=== PATIENT | female | born 1970 | race Caucasian/White ===

== ENCOUNTER 2016-05-18 12:11 | Emergency (ER) | payer OTHER ==
[~2016-05-18] VITALS: Ht 162.6 cm; Wt 97.7 kg
[~2016-05-18 12:11] MED LIST: ACET-1256 PO; ALBU1AER9 INH; OMEP40CA PO; SIMV10TA5 PO
[2016-05-18 12:12] VITALS: TEMP 36.7; Ht 162.6 cm; Wt 97.7 kg
[2016-05-18] MEDS ORDERED: PRLSR20 PO (12:36)
--- NOTE | 2016-05-18 13:08 | DIAGNOSTIC IMAGING REPORT ---
TWO VIEW CHEST CLINICAL HISTORY: Productive cough. Wheezing. FINDINGS: PA and lateral chest radiographs are obtained. No prior studies are available for comparison at the time of dictation. The cardiomediastinal silhouette is unremarkable. Mild patchy airspace opacities are identified at the left lung base. The lungs are otherwise clear. No pleural effusion or pneumothorax is seen. The bony thorax appears intact. IMPRESSION: Mild patchy airspace opacities are identified at the left lung base. This likely represents an infectious/inflammatory pneumonitis. Radiographic follow-up to resolution is recommended. Electronically signed by: Raad Nava M.D. 05/18/2016 1:06 PM Dictated Date/Time: 05/18/2016 1:05 PM
[2016-05-18 14:21] LABS: BASO % 0.5 %; BASO ABS # 0.03 K/uL (0-0.2); COMPLETE YES; EOS % 3.5 %; HEMATOCRIT 38.4 % (37-47); IG% 0.3 %; LYMPH % 47.1 %; LYMPH ABS # 2.96 K/uL (1.2-3.4); MEAN CELL VOLUME 82.6 fL (80-100); MEAN CORPUSCULAR HGB CONC 35.2 g/dl (32-36); MEAN PLATELET VOLUME 8.9 fL (7.4-10.4); MONO % 6.8 %; NEUT % 41.8 %; PLATELET COUNT 246 K/uL (130-400); RED BLOOD COUNT 4.65 M/uL (4.2-5.4); WHITE BLOOD COUNT 6.29 K/uL (4.8-10.8)
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
[2016-05-18 14:38] LABS: BUN/CREATININE RATIO 19.2 (10-20); CALCIUM 8.6 mg/dl (8.5-10.1); CREATININE 0.65 mg/dl (0.60-1.20); POTASSIUM 3.7 mmol/L (3.5-5.1)
[2016-05-18 14:48] LABS: ALB/GLOB RATIO 0.8 (0.9-2); THYROID STIMULATING HORMONE 2.48 uIu/ml (0.300-4.500)
[2016-05-18] MEDS ORDERED: DOXY-300 PO (15:10)
[2016-05-18] MEDS ORDERED: VNTHFA/IN INH (15:10)
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
[2016-05-18 15:45] VITALS: BP 109/72; PULSE 54; O2SAT 99
== END 2016-05-18 15:50 | disposition home or self-care (01) ==
LOC: C.EDB 12:12 → C.EDD 15:50
DX: J18.9 Pneumonia, unspecified organism (principal); M25.552 Pain in left hip; K21.9 Gastro-esophageal reflux disease without esophagitis

== ENCOUNTER 2016-07-04 12:14 | Emergency (ER) | payer OTHER ==
[~2016-07-04 12:14] MED LIST changes: -ACET-1256 PO; -ALBU1AER9 INH; +DOXY-300 PO; -OMEP40CA PO; +PRLSR20 PO; -SIMV10TA5 PO; +VNTHFA/IN INH
[2016-07-04 12:21] VITALS: TEMP 36.7
[2016-07-04] MEDS ORDERED: VNTHFA/IN INH (12:38)
[2016-07-04] MEDS ORDERED: DOXY100C2 PO (12:38)
[2016-07-04] MEDS ORDERED: ALBUT/IPRATROP 3MG/0.5MG NEB 3 ML VIAL INH ONE (12:45)
[2016-07-04] MEDS ORDERED: OMEP40CA41 PO (13:11)
--- NOTE | 2016-07-04 13:23 | DIAGNOSTIC IMAGING REPORT ---
CHEST 2 VIEWS ROUTINE CLINICAL HISTORY: Cough x3 days. Pneumon last month. Dyspnea COMPARISON STUDY: B4 2016 FINDINGS: Improved exam. Minimal residual basilar interstitial prominence. No focal infiltrates. IMPRESSION: Improving basilar infiltrate with minimal interstitial residual. Electronically signed by: Dylon Terrell M.D. 07/04/2016 1:21 PM Dictated Date/Time: 07/04/2016 1:20 PM
[2016-07-04] MEDS ORDERED: LEVO-366 PO (14:08)
[2016-07-04 14:16] VITALS: BP 105/58; PULSE 70; O2SAT 97
--- NOTE | 2016-07-04 17:04 | EMERGENCY ROOM VISIT NOTE ---
History First contact with patient: 12:33 Chief Complaint: CONGESTION Stated Complaint: CHEST PRESSURE, DARK YELLOW PHLEM, FEVER Nursing Triage Summary: pt was here recently for pnx. was given antibiotics and steroids. " I was to follow up with my own Dr, but I didn't" 3 days ago developed sweats and cough, now productive. History of Present Illness The patient is a 45 year old female who presents to the Emergency Room with complaints of worsening cough over the past 3 days. The patient states her cough is somewhat productive, brown in the morning and green throughout the day. The patient reports a history of pneumonia about one month ago, where she completed doxycycline. The patient was feeling well after this medication, but did not follow up with her primary care physician. The patient has not had fever or chills. She is a former smoker but has not smoked in 5 years. She does not report other symptoms and is not taking anything [id number] for her symptoms. Review of Systems More than 10 systems were reviewed and otherwise negative with the exception of history of present illness. Past Medical/Surgical History Medical Problems: (1) Anxiety State Nos (2) Chronic Liver Dis Nec (3) Drug Depend Nos-Unspec (4) Esophageal Reflux (5) Helicobacter Pylori [H. Pylori] (6) Ovarian Cyst Nec/Nos (7) Uterine Leiomyoma Nos Social History Problems: (1) Diaphragmatic hernia Family History No pertinent family history Social History Smoking Status: Former Smoker Alcohol Use: none Marital Status: Housing Status: lives with family Occupation Status: unemployed Current/Historical Medications Scheduled Levofloxacin (Levaquin), 500 MG PO DAILY Omeprazole (Prilosec), 40 MG PO BID Allergies Coded Allergies: Erythromycin (Verified Allergy, Severe, DERIVATIVES:N/V, 09/21/15) Aspirin (Verified Allergy, Mild, N/V, 09/21/15) Penicillins (Verified Adverse Reaction, Severe, N/V, 09/21/15) Codeine (Verified Adverse Reaction, Intermediate, DERIVATIVES: N/V, 09/21/15 ) Physical Exam Vital Signs Date Time Temp Pulse Resp B/P Pulse Ox O2 Delivery O2 Flow Rate FiO2 07/04/16 14:16 70 20 105/58 97 Room Air 07/04/16 12:30 Room Air 07/04/16 12:21 36.7 88 20 122/76 96 Room Air Pain Rating (0-10): 0 Physical Exam VITALS: Vitals are noted on the nurse's note and reviewed by myself. Vital signs stable. GENERAL: Well-developed, well-nourished, white female, who is in no acute distress and resting comfortably. Patient is cooperative with the examination. HEAD: Normocephalic atraumatic. EARS: External ear normal. External auditory canals clear, tympanic membranes pearly spain without erythema or effusion bilaterally. EYES: Pupils equal round and reactive to light and accommodation. Conjunctivae without injection, sclerae without icterus. Extraocular movements intact. NOSE: Patent, turbinates without inflammation or discharge. MOUTH: Mucous membranes moist. Tonsils are not enlarged. Pharynx without erythema, blood, or exudate. Uvula midline. Airway patent. NECK: Supple without nuchal rigidity. No lymphadenopathy. No thyromegaly. Cervical spine is nontender. HEART: Regular rate and rhythm without murmurs gallops or rubs. LUNGS: Clear to auscultation bilaterally without wheezes, rales or rhonchi. No retractions or accessory muscle use. Medical Decision & Procedures ER Provider Diagnostic Interpretation: CHEST 2 VIEWS ROUTINE CLINICAL HISTORY: Cough x3 days. Pneumon last month. Dyspnea COMPARISON STUDY: B4 2016 FINDINGS: Improved exam. Minimal residual basilar interstitial prominence. No focal infiltrates. IMPRESSION: Improving basilar infiltrate with minimal interstitial residual. Medications Administered Medications (Trade) Dose Ordered Sig/Jose Route Start Time Stop Time Status Last Admin Dose Admin Albuterol/ Ipratropium (Duoneb) 3 ml NOW ONCE INH 07/04/16 12:45 07/04/16 12:46 DC 07/04/16 12:45 3 ML ED Course Physical exam and history were performed. Nursing notes and EMR were reviewed. Patient appears to have cough worsening over the past 3 days. She has a diagnosis of pneumonia about one month ago and has been doing well after antibiotics. The patient does not appear toxic on exam. She was given a breathing treatment to help with her cough. Chest x-ray was performed and shows an mproving but not completely resolved infiltrate. Because of this I will start the patient on a course of Levaquin. The patient needs to follow with her primary care physician for further care and management. She was otherwise invited back to the ER with any new, worsening, or concerning symptoms. The chart was completed utilizing [employer] Speech Voice Recognition Software. Grammatical errors, random word insertions, pronoun errors, and incomplete sentences are an occasional consequence of this system due to software limitations, ambient noise, and hardware issues. Any formal questions or concerns about the content, text, or information contained within the body of this dictation should be directly addressed to the provider for clarification. . Medical Decision Differential diagnosis: Etiologies such as viral syndrome, otitis, pharyngitis, pneumonia, influenza, meningitis, urinary tract infection, sepsis, bacteremia, as well as others were entertained. Impression Primary Impression: Bronchitis Departure Information Dispostion Home / Self-Care Prescriptions Levofloxacin (Levaquin) 500 Mg Tab 500 MG PO DAILY for 7 Days, #7 TAB Prov: Дмитрий Christie PA-C 07/04/16 Referrals No Doctor, Assigned Forms HOME CARE DOCUMENTATION FORM, Work Instructions, Additional Instructions: Patient was seen and evaluated today in the emergency department fo medical care. May not lift, pull, push, or drage more than 10 pounds unti 07/11/2016. IMPORTANT VISIT INFORMATION Patient Instructions [facility] Additional Instructions You were seen and evaluated today on an emergency basis only. This is not a substitute for, or an effort to provide, complete comprehensive medical care. It is not possible to recognize and treat all injuries or illnesses in a single emergency department visit. For this reason it is recommended that you followup with your primary care physician next week for ongoing care and evaluation. Take Levaquin 500 mg daily for the next 7 days You are welcome to return to the emergency department anytime with new, worsening, or concerning symptoms. Work Instructions Additional Work Instructions: Patient was seen and evaluated today in the emergency department for medical care. May not lift, pull, push, or drage more than 10 pounds until 07/11/2016.
== END 2016-07-04 14:17 | disposition home or self-care (01) ==
LOC: C.EDB 12:16
DX: J40 Bronchitis, not specified as acute or chronic (principal); F41.9 Anxiety disorder, unspecified; K76.9 Liver disease, unspecified; K21.9 Gastro-esophageal reflux disease without esophagitis; F19.20 Other psychoactive substance dependence, uncomplicated; Z87.891 Personal history of nicotine dependence; Z79.899 Other long term (current) drug therapy

== ENCOUNTER 2016-10-28 06:39 | Emergency (ER) | payer OTHER ==
[~2016-10-28] VITALS: Ht 162.6 cm; Wt 98.4 kg
[~2016-10-28 06:39] MED LIST changes: -DOXY-300 PO; +OMEP40CA41 PO; -PRLSR20 PO; -VNTHFA/IN INH
[2016-10-28 06:41] VITALS: TEMP 36.7; Ht 162.6 cm; Wt 98.4 kg
[2016-10-28] MEDS ORDERED: PRLSR20 PO (07:10)
[2016-10-28] MEDS ORDERED: KETOROLAC TROMETHAMINE 30 MG/ML VIAL IV STA (07:15)
[2016-10-28] MEDS ORDERED: ONDANSETRON INJ 2 MG/ML 2 ML VIAL IV STA (07:15)
--- NOTE | 2016-10-28 07:34 | EMERGENCY ROOM VISIT NOTE ---
History Report prepared by Marleni: Harry Guy Under the Supervision of: Dr. Courtney Acosta M.D. First contact with patient: 06:52 Chief Complaint: FLANK PAIN Stated Complaint: KIDNEY AREA HURTING PLUS WHEN BREATHING History of Present Illness The patient is a 46 year old female who presents to the Emergency Room with complaints of persistent flank and abdominal pain that began roughly 2.5 weeks prior to arrival. The patient states that she has been experiencing pain in the bilateral flanks, that wraps the whole way around her lower back. The flank pain prompted the patient to come into the emergency department this morning. The patient noted several other complaints on exam as well. She complains of worsening weakness over the past 1.5 weeks and states that the weakness is worse on the right. She is dropping objects at work due to this weakness and feels intermittent numbness in the right extremity. There has also been slurred speech and blurry vision for the same time frame. The patient continued to mention that she has had a persistent headache across her forehead for the past two months, along with a "pressure" pain in the back of her neck. She had a hysterectomy recently and claims that she has not been able to void normally and has a "full" feeling in her lower abdomen. The patient has been nauseous as well. 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 A total of 10 systems reviewed and were otherwise negative. Past Medical & Surgical Medical Problems: (1) Anxiety State Nos (2) Chronic Liver Dis Nec (3) Drug Depend Nos-Unspec (4) Esophageal Reflux (5) Helicobacter Pylori [H. Pylori] (6) Ovarian Cyst Nec/Nos (7) Uterine Leiomyoma Nos Social History Problems: (1) Diaphragmatic hernia Family History Diabetes mellitus Heart disease Social History Smoking Status: Former Smoker Alcohol Use: none Marital Status: Housing Status: lives with family Occupation Status: unemployed Current/Historical Medications Scheduled Omeprazole (Prilosec), 20 MG PO DAILY Allergies Coded Allergies: Erythromycin (Verified Allergy, Severe, DERIVATIVES:N/V, 09/21/15) Penicillins (Verified Adverse Reaction, Severe, N/V, 09/21/15) Physical Exam Vital Signs Date Time Temp Pulse Resp B/P (MAP) Pulse Ox O2 Delivery O2 Flow Rate FiO2 10/28/16 09:18 50 16 103/59 97 Room Air 10/28/16 07:00 69 10/28/16 06:41 36.7 69 18 149/84 100 Room Air Physical Exam Vital signs reviewed. General: Well-appearing female, in no significant distress. HEENT: No scleral icterus, PERRLA, neck supple. Atraumatic. Cardiovascular: Regular rate and rhythm, no extra sounds. Pulmonary: Clear to auscultation bilaterally, normal work of breathing. Abdomen: Soft, nontender, nondistended, positive bowel sounds. Musculoskeletal: Atraumatic, no peripheral edema. Neurologic: Patient awake alert and oriented x 3, full strength in all 4 extremities. Cranial nerves 2 through 12 grossly intact. Skin: Warm, dry, no rash Medical Decision & Procedures ER Provider Diagnostic Interpretation: Radiology results as stated below per my review and radiologist interpretation: CERVICAL SPINE W/O CT DOSE: HISTORY: Pain. Neuropathy. R arm numbness, neck pain TECHNIQUE: Multiaxial CT images of the cervical spine were performed and reformatted in the sagittal and coronal plane without the use of contrast. A dose lowering technique was utilized adhering to the principles of ALARA. COMPARISON: None. FINDINGS: No fractures. No subluxation. Prevertebral soft tissues and the C1-C2 interval are intact. No pneumothorax. IMPRESSION: No fractures within the cervical spine. No acute bony abnormality. No significant degenerative change. The above report was generated using voice recognition software. It may contain grammatical, syntax or spelling errors. Electronically signed by: Dylon Terrell M.D. 10/28/2016 7:59 AM Dictated Date/Time: 10/28/2016 7:57 AM GALLBLADDER-ABD LIMITED CLINICAL HISTORY: upper abd pain radiating to back pain. Nausea. TECHNIQUE: Ultrasound COMPARISON STUDY: None FINDINGS: Fatty infiltration of liver. Mild gallbladder sludge. No shadowing gallstones. Common bile duct 5 mm. Pancreas and right kidney unremarkable. IMPRESSION: Fatty infiltration of liver. Small amount of gallbladder sludge. Normal caliber bile ducts The above report was generated using voice recognition software. It may contain grammatical, syntax or spelling errors. Electronically signed by: Dylon Terrell M.D. 10/28/2016 8:49 AM Dictated Date/Time: 10/28/2016 8:[address] SCAN OF THE BRAIN WITHOUT IV CONTRAST CLINICAL HISTORY: Right arm numbness. Headache. Blurry vision. COMPARISON STUDY: No priors. TECHNIQUE: Unenhanced axial CT scan of the brain is performed from the vertex to the skull base. Automated dose control exposure was utilized. A dose lowering technique was utilized adhering to the principles of ALARA. CT DOSE: 1078.62 mGy.cm FINDINGS: Brain parenchyma: The brain parenchyma is normal in appearance. A small choroid fissure cyst is suggested on the right. There is no hemorrhage, mass effect, or evidence of acute territorial ischemia by CT criteria. Bustillos-white matter is preserved. No extra-axial fluid collection is seen. Ventricles, sulci, cisterns: Normal in configuration. Intracranial vasculature: The visualized intracranial vasculature at the skull base is normal in appearance. Calvarium: Unremarkable. Sinuses and mastoids: The visualized paranasal sinuses are clear. The mastoid air cells are well pneumatized. Orbits: The bony orbits are grossly intact. IMPRESSION: There is no hemorrhage, mass effect, or evidence of acute territorial ischemia by CT criteria. Electronically signed by: Raad Nava M.D. 10/28/2016 8:00 AM Dictated Date/Time: 10/28/2016 7:54 AM (RENAL)RETROPERITON COMP CLINICAL HISTORY: 46 years-old Female presenting with bilateral flank pain. TECHNIQUE: Real-time grayscale and limited color Doppler ultrasound imaging of the kidneys and bladder was performed. COMPARISON: CT from 04/01/2013. FINDINGS: Right kidney: Normal echogenicity. Right kidney measures 10.7 cm. Minimal pelvocaliectasis without evidence of hydronephrosis. No convincing evidence of calculus or mass. Normal perfusion. Left kidney: Normal echogenicity. Left kidney measures 10.8 cm. No hydronephrosis. No convincing evidence of calculus or mass. Normal perfusion. Bladder: No bladder wall thickening. Bilateral ureteral jets present. Other: Hyperechogenicity of the liver suggestive of hepatic steatosis. IMPRESSION: 1. Normal renal ultrasound. No obstruction. Electronically signed by: Rajat Gonzalez M.D. 10/28/2016 8:49 AM Dictated Date/Time: 10/28/2016 8:47 AM Laboratory Results 10/28/16 06:58 Red Blood Count 4.88, Mean Corpuscular Volume 85.0, Mean Corpuscular Hemoglobin 29.3, Mean Corpuscular Hemoglobin Concent 34.5, Mean Platelet Volume 9.4, Neutrophils (%) (Auto) 54.4, Lymphocytes (%) (Auto) 37.9, Monocytes (%) (Auto) 6.0, Eosinophils (%) (Auto) 1.3, Basophils (%) (Auto) 0.3, Neutrophils # (Auto) 4.35, Lymphocytes # (Auto) 3.03, Monocytes # (Auto) 0.48, Eosinophils # (Auto) 0.10, Basophils # (Auto) 0.02 10/28/16 06:58 Test 10/28/16 06:58 10/28/16 07:00 White Blood Count 7.99 K/uL (4.8-10.8) Red Blood Count 4.88 M/uL (4.2-5.4) Hemoglobin 14.3 g/dL (12.0-16.0) Hematocrit 41.5 % (37-47) Mean Corpuscular Volume 85.0 fL (80-100) Mean Corpuscular Hemoglobin 29.3 pg (25-34) Mean Corpuscular Hemoglobin Concent 34.5 g/dl (32-36) Platelet Count 332 K/uL (130-400) Mean Platelet Volume 9.4 fL (7.4-10.4) Neutrophils (%) (Auto) 54.4 % Lymphocytes (%) (Auto) 37.9 % Monocytes (%) (Auto) 6.0 % Eosinophils (%) (Auto) 1.3 % Basophils (%) (Auto) 0.3 % Neutrophils # (Auto) 4.35 K/uL (1.4-6.5) Lymphocytes # (Auto) 3.03 K/uL (1.2-3.4) Monocytes # (Auto) 0.48 K/uL (0.11-0.59) Eosinophils # (Auto) 0.10 K/uL (0-0.5) Basophils # (Auto) 0.02 K/uL (0-0.2) RDW Standard Deviation 39.7 fL (36.4-46.3) RDW Coefficient of Variation 12.8 % (11.5-14.5) Immature Granulocyte % (Auto) 0.1 % Immature Granulocyte # (Auto) 0.01 K/uL (0.00-0.02) Anion Gap 6.0 mmol/L (3-11) Est Creatinine Clear Calc Drug Dose 125.8 ml/min Estimated GFR () 123.8 Estimated GFR (Non- 106.8 BUN/Creatinine Ratio 24.6 (10-20) Calcium Level 8.8 mg/dl (8.5-10.1) Magnesium Level 2.1 mg/dl (1.8-2.4) Total Bilirubin 0.4 mg/dl (0.2-1) Direct Bilirubin < 0.1 mg/dl (0-0.2) Aspartate Amino Transf (AST/SGOT) 19 U/L (15-37) Alanine Aminotransferase (ALT/SGPT) 37 U/L (12-78) Alkaline Phosphatase 70 U/L (45-117) Total Protein 7.9 gm/dl (6.4-8.2) Albumin 3.5 gm/dl (3.4-5.0) Thyroid Stimulating Hormone (TSH) 2.720 uIu/ml (0.300-4.500) Urine Color YELLOW Urine Appearance CLEAR (CLEAR) Urine pH 5.5 (4.5-7.5) Urine Specific Baldwin 1.014 (1.000-1.030) Urine Protein NEG (NEG) Urine Glucose (UA) NEG (NEG) Urine Ketones NEG (NEG) Urine Occult Blood TRACE (NEG) Urine Nitrite NEG (NEG) Urine Bilirubin NEG (NEG) Urine Urobilinogen NEG (NEG) Urine Leukocyte Esterase NEG (NEG) Urine WBC (Auto) 1-5 /hpf (0-5) Urine RBC (Auto) 0-4 /hpf (0-4) Urine Hyaline Casts (Auto) 0 /lpf (0-5) Urine Epithelial Cells (Auto) 10-20 /lpf (0-5) Urine Bacteria (Auto) NEG (NEG) Laboratory results per my review. Medications Administered Medications (Trade) Dose Ordered Sig/Jose Route Start Time Stop Time Status Last Admin Dose Admin Ketorolac Tromethamine (Toradol Inj) 30 mg NOW STAT IV 10/28/16 07:15 10/28/16 07:18 DC 10/28/16 07:28 30 MG Ondansetron HCl (Zofran Inj) 4 mg NOW STAT IV 10/28/16 07:15 10/28/16 07:18 DC 10/28/16 07:29 4 MG ECG Indication: other (Arm Pain) Rate (beats per minute): 69 Rhythm: normal sinus Findings: no acute ischemic change, no ectopy ED Course 713: Past medical records reviewed. The patient was evaluated in room B9. A complete history and physical examination was performed. 714: Ordered Zofran 4 mg IV, Toradol 30 mg IV. 908: Upon reevaluation, the patient appeared to have improvement of her symptoms. I discussed findings with her. She verbalized agreement of the treatment plan. The patient was discharged home. Medical Decision Differential Diagnosis includes; cervical radiculopathy, CVA, urinary retention , renal obstruction, cholecystitis, UTI, pyelonephritis. This patient was evaluated and appeared to be in no significant distress. IV access was obtained and laboratory work was drawn. Patient's laboratory work is fairly unrevealing. UA is negative. She was given Toradol 30 mg IV and Zofran 4 mg IV. Ultrasound of her quadrant was performed and is negative, renal ultrasound is normal. Cervical spine CT is normal, no significant degenerative changes. CT scan of the head reveals no evidence of acute intracranial pathology. The patient was notified of the findings. She was reassured regarding her symptoms. She will follow-up with her PCP this week for reevaluation and return to the ER for worsening of symptoms or any medical concerns. Medication Reconcilliation Current Medication List: was personally reviewed by me Blood Pressure Screening Patient's blood pressure: Elevated blood pressure Blood pressure disposition: Referred to PCP Impression Primary Impression: Bilateral flank pain Additional Impressions: Neck pain, chronic Arm paresthesia, right Scribe Attestation The scribe's documentation has been prepared under my direction and personally reviewed by me in its entirety. I confirm that the note above accurately reflects all work, treatment, procedures, and medical decision making performed by me. Departure Information Dispostion Home / Self-Care Referrals Dylon Roa M.D. (PCP) Forms HOME CARE DOCUMENTATION FORM, IMPORTANT VISIT INFORMATION Patient Instructions My [facility] Additional Instructions Diagnosis: Bilateral flank pain, right arm paresthesias, chronic flank pain Please drink plenty of clear fluids. Ibuprofen 600 mg every 6 hours as needed for pain with food. Follow-up with your physician this week for reevaluation. Have your BP rechecked Return to the emergency department for worsening of symptoms or any medical concerns. Problem Qualifiers
[2016-10-28 07:38] LABS: BASO % 0.3 %; BASO ABS # 0.02 K/uL (0-0.2); COMPLETE YES; EOS % 1.3 %; HEMATOCRIT 41.5 % (37-47); IG% 0.1 %; LYMPH % 37.9 %; LYMPH ABS # 3.03 K/uL (1.2-3.4); MEAN CORPUSCULAR HEMOGLOBIN 29.3 pg (25-34); MEAN CORPUSCULAR HGB CONC 34.5 g/dl (32-36); MEAN PLATELET VOLUME 9.4 fL (7.4-10.4); NEUT % 54.4 %; PLATELET COUNT 332 K/uL (130-400); RED BLOOD COUNT 4.88 M/uL (4.2-5.4); WHITE BLOOD COUNT 7.99 K/uL (4.8-10.8)
[2016-10-28 07:40] LABS: MANUAL MICROSCOPIC REQUIRED? NO; REVIEW REQ? NO; URINE APPEARANCE CLEAR (CLEAR); URINE BILIRUBIN NEG (NEG); URINE COLOR YELLOW; URINE NITRITE NEG (NEG); URINE PH 5.5 (4.5-7.5); URINE SPECIFIC GRAVITY 1.014 (1.000-1.030); UROBILINOGEN NEG (NEG); ZZUR CULT IF INDIC CLEAN CATCH NO
[2016-10-28 07:49] LABS: ALT/SGPT 37 U/L (12-78); BLOOD UREA NITROGEN 16 mg/dl (7-18); BUN/CREATININE RATIO 24.6 (10-20); CALCIUM 8.8 mg/dl (8.5-10.1); CARBON DIOXIDE 28 mmol/L (21-32); CHLORIDE 106 mmol/L (98-107); CREATININE 0.63 mg/dl (0.60-1.20); GLUCOSE 69 mg/dl (70-99); MAGNESIUM 2.1 mg/dl (1.8-2.4); POTASSIUM 3.7 mmol/L (3.5-5.1); SODIUM 140 mmol/L (136-145)
[2016-10-28 08:00] LABS: ALKALINE PHOSPHATASE 70 U/L (45-117); AST/SGOT 19 U/L (15-37)
--- NOTE | 2016-10-28 08:01 | DIAGNOSTIC IMAGING REPORT ---
CERVICAL SPINE W/O CT DOSE: HISTORY: Pain. Neuropathy. R arm numbness, neck pain TECHNIQUE: Multiaxial CT images of the cervical spine were performed and reformatted in the sagittal and coronal plane without the use of contrast. A dose lowering technique was utilized adhering to the principles of ALARA. COMPARISON: None. FINDINGS: No fractures. No subluxation. Prevertebral soft tissues and the C1-C2 interval are intact. No pneumothorax. IMPRESSION: No fractures within the cervical spine. No acute bony abnormality. No significant degenerative change. The above report was generated using voice recognition software. It may contain grammatical, syntax or spelling errors. Electronically signed by: Dylon Terrell M.D. 10/28/2016 7:59 AM Dictated Date/Time: 10/28/2016 7:57 AM
--- NOTE | 2016-10-28 08:01 | DIAGNOSTIC IMAGING REPORT ---
CT SCAN OF THE BRAIN WITHOUT IV CONTRAST CLINICAL HISTORY: Right arm numbness. Headache. Blurry vision. COMPARISON STUDY: No priors. TECHNIQUE: Unenhanced axial CT scan of the brain is performed from the vertex to the skull base. Automated dose control exposure was utilized. A dose lowering technique was utilized adhering to the principles of ALARA. CT DOSE: 1078.62 mGy.cm FINDINGS: Brain parenchyma: The brain parenchyma is normal in appearance. A small choroid fissure cyst is suggested on the right. There is no hemorrhage, mass effect, or evidence of acute territorial ischemia by CT criteria. Bustillos-white matter is preserved. No extra-axial fluid collection is seen. Ventricles, sulci, cisterns: Normal in configuration. Intracranial vasculature: The visualized intracranial vasculature at the skull base is normal in appearance. Calvarium: Unremarkable. Sinuses and mastoids: The visualized paranasal sinuses are clear. The mastoid air cells are well pneumatized. Orbits: The bony orbits are grossly intact. IMPRESSION: There is no hemorrhage, mass effect, or evidence of acute territorial ischemia by CT criteria. Electronically signed by: Raad Nava M.D. 10/28/2016 8:00 AM Dictated Date/Time: 10/28/2016 7:54 AM
--- NOTE | 2016-10-28 08:50 | DIAGNOSTIC IMAGING REPORT ---
GALLBLADDER-ABD LIMITED CLINICAL HISTORY: upper abd pain radiating to back pain. Nausea. TECHNIQUE: Ultrasound COMPARISON STUDY: None FINDINGS: Fatty infiltration of liver. Mild gallbladder sludge. No shadowing gallstones. Common bile duct 5 mm. Pancreas and right kidney unremarkable. IMPRESSION: Fatty infiltration of liver. Small amount of gallbladder sludge. Normal caliber bile ducts The above report was generated using voice recognition software. It may contain grammatical, syntax or spelling errors. Electronically signed by: Dylon Terrell M.D. 10/28/2016 8:49 AM Dictated Date/Time: 10/28/2016 8:47 AM
--- NOTE | 2016-10-28 08:51 | DIAGNOSTIC IMAGING REPORT ---
(RENAL)RETROPERITON COMP CLINICAL HISTORY: 46 years-old Female presenting with bilateral flank pain. TECHNIQUE: Real-time grayscale and limited color Doppler ultrasound imaging of the kidneys and bladder was performed. COMPARISON: CT from 04/01/2013. FINDINGS: Right kidney: Normal echogenicity. Right kidney measures 10.7 cm. Minimal pelvocaliectasis without evidence of hydronephrosis. No convincing evidence of calculus or mass. Normal perfusion. Left kidney: Normal echogenicity. Left kidney measures 10.8 cm. No hydronephrosis. No convincing evidence of calculus or mass. Normal perfusion. Bladder: No bladder wall thickening. Bilateral ureteral jets present. Other: Hyperechogenicity of the liver suggestive of hepatic steatosis. IMPRESSION: 1. Normal renal ultrasound. No obstruction. Electronically signed by: Rajat Gonzalez M.D. 10/28/2016 8:49 AM Dictated Date/Time: 10/28/2016 8:47 AM
[2016-10-28 09:18] VITALS: BP 103/59; PULSE 50; O2SAT 97
== END 2016-10-28 09:38 | disposition home or self-care (01) ==
LOC: C.EDB 06:42
DX: R10.9 Unspecified abdominal pain (principal); G89.29 Other chronic pain; M54.2 Cervicalgia; R20.9 Unspecified disturbances of skin sensation; R53.1 Weakness; R51 Headache; F41.9 Anxiety disorder, unspecified; K21.9 Gastro-esophageal reflux disease without esophagitis; Z79.899 Other long term (current) drug therapy; Z87.42 Personal history of other diseases of the female genital tract; Z87.891 Personal history of nicotine dependence

== ENCOUNTER 2017-02-22 11:45 | Emergency (ER) | payer SELFPAY ==
[~2017-02-22] VITALS: Ht 162.6 cm; Wt 97.1 kg
[~2017-02-22 11:45] MED LIST changes: -OMEP40CA41 PO; +PRLSR20 PO
[2017-02-22 11:56] VITALS: TEMP 36.5; Ht 162.6 cm; Wt 97.1 kg
[2017-02-22] MEDS ORDERED: LIDOCAINE/EPINEPHRINE 1% 20 ML VIAL ONE (12:06)
--- NOTE | 2017-02-22 12:34 | EMERGENCY ROOM VISIT NOTE ---
ED Visit Note First contact with patient: 12:11 CHIEF COMPLAINT: Left thumb laceration HISTORY OF PRESENT ILLNESS: This 46-year-old female presents the ER with chief complaint of a laceration to her left thumb. 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 The patient denies any numbness and tingling. The patient states she is able to move her finger without difficulty. The patient is not on any blood thinners. The patient's tetanus is up-to-date. The patient is right- hand dominant. REVIEW OF SYSTEMS: 6 system review was performed and was negative unless stated otherwise in history of present illness. PMH: The patient is healthy; C-sections, hysterectomy SOCIAL HISTORY: Patient lives with her . The patient denies any tobacco or alcohol use. PHYSICAL EXAM: Vital Signs: Were reviewed Reviewed Nurse's notes. GENERAL: 46- year-old female appears in no acute distress. MENTAL Status: Alert and oriented 3. LEFT THUMB: No gross bony deformity noted. There is a 2 cm laceration on the dorsal aspect vertically over the phalangeal joint. There is mild active bleeding. The wound looks clean. I am able to visualize the extensor tendon which is intact. Extension of the thumb is full and strong. EMERGENCY DEPARTMENT COURSE: The patient was evaluated. Wound Repair: Complexity: Basic. Verbal consent was obtained after the risks and benefits were explained, including but not limited to bleeding, scarring, infection, pain, and bone/joint /nerve damage. The skin was prepped with betadine and a sterile field set. The wound was anesthetized with 2.0 ml of 1% buffered lidocaine. With direct pressure the bleeding subsided. Copious irrigation was performed using sterile saline. The wound was explored for foreign bodies and none found. Debridement was not performed. The wound edges were approximated using 5-0 Ethilon with 5 simple interrupted sutures. Hemostasis and excellent approximation was achieved. Antibacterial ointment and a sterile dressing applied. Detailed wound care instructions and signs and symptoms of infection reviewed with the patient. No complications and the patient tolerated the procedure well. The patient was then placed in a long metal finger splint. The patient was discharged home in stable condition. DIAGNOSIS: 2 cm left thumb laceration DISCHARGE INSTRUCTIONS & TREATMENT: Keep wound clean and dry. No water on the area for 12-24 hrs then no soaking until sutures removed. Do not allow any crusting or dried blood to accumulate on sutures. If this occurs, use a 1:1 solution of hydrogen peroxide/water on a Q-tip to clean the wound. Use an antibiotic ointment for 3-4 days, then let wound dry. Suture removal in 10-12 days. Follow up sooner for any signs of infection (increasing redness, swelling , drainage). Ice and elevate for swelling and pain. Tylenol 650 mg every 6 hrs for pain. Wear finger splint except for bathing. Off work for the remainder of the day. Current/Historical Medications Scheduled Omeprazole (Prilosec), 20 MG PO DAILY Allergies Coded Allergies: Erythromycin (Verified Allergy, Severe, DERIVATIVES:N/V, 09/21/15) Penicillins (Verified Adverse Reaction, Severe, N/V, 09/21/15) Vital Signs Date Time Temp Pulse Resp B/P (MAP) Pulse Ox O2 Delivery O2 Flow Rate FiO2 02/22/17 11:56 36.5 69 20 120/82 98 Room Air Departure Information Referrals Girma Paiz M.D. (MEDICAL) (PCP) Patient Instructions My [facility]
[2017-02-22 13:00] VITALS: BP 115/76; PULSE 88; O2SAT 98
== END 2017-02-22 13:07 | disposition home or self-care (01) ==
LOC: C.EDB 11:47 → C.EDD 13:07
DX: S61.012A Laceration without foreign body of left thumb without damage to nail, initial encounter (principal); W45.8XXA Other foreign body or object entering through skin, initial encounter; Y99.0 Civilian activity done for income or pay; Z90.710 Acquired absence of both cervix and uterus